=== PATIENT | male | born 1995 | race Two or more races ===

== ENCOUNTER 2019-04-11 09:59 | Emergency (ER) | payer SELFPAY ==
[~2019-04-11] VITALS: Ht 167.6 cm; Wt 68.0 kg
[2019-04-11 10:41] LABS: Basophils # (auto) 0 uL; Basophils % (auto) 0.4 % (0.0-2.0); Eosinophils # (auto) 0.2 uL; Eosinophils % (auto) 3.7 % (0.0-7.0); Hematocrit 45.6 % (41.0-53.0); Hemoglobin 15.2 g/dL (13.5-17.5); Lymphocytes # (auto) 2.3 uL; Lymphocytes % (auto) 34.3 % (10.0-50.0); Mean Corpuscular Hemoglobin 29.9 pg (28.0-32.0); Mean Corpuscular Hgb Conc. 33.4 g/dL (32.0-36.0); Mean Corpuscular Volume 89.5 fL (80.0-100.0); Monocytes # (auto) 0.6 uL; Monocytes % (auto) 9.2 % (0.0-12.0); Neutrophils # (auto) 3.5 uL; Neutrophils % (auto) 52.4 % (37.0-80.0); Platelet Count (auto) 195 10^3/uL (140-450); Red Cell Distribution Width 13.7 % (11.8-14.3); White Blood Cell 6.7 10^3/uL (4.4-10.8)
[2019-04-11 10:51] VITALS: BP 124/83
[2019-04-11 10:55] LABS: Albumin 4.3 g/dL (3.4-5.0); BUN/Creatinine Ratio 15.7; Calcium 9.1 mg/dL (8.5-10.1); Potassium 3.9 mmol/L (3.5-5.1)
[2019-04-11 10:57] LABS: Bilirubin, Total 0.7 mg/dL (0.2-1.0); Total Protein 7.5 g/dL (6.4-8.2)
[2019-04-11] MEDS ORDERED: KETOROLAC TROMETH 15 mg/ml 1ML VL IV ONE (11:15)
[2019-04-11] MEDS ORDERED: KETOROLAC TROMETH 60MG/2ML VIAL IM ONE (11:30)
[2019-04-11 11:55] LABS: Urine Bacteria NONE SEEN /hpf (None Seen); Urine Blood Negative /uL (Negative); Urine Mucus FEW (None Seen); Urine Specific Gravity 1.025 (1.001-1.035); Urine WBC 1 /hpf (0 - 3)
== END 2019-04-11 12:40 | disposition home or self-care (01) ==
LOC: ER 09:59
DX: R10.31 Right lower quadrant pain (principal); R11.2 Nausea with vomiting, unspecified; R19.7 Diarrhea, unspecified; F12.90 Cannabis use, unspecified, uncomplicated
CPT/HCPCS: 36415; 74176; 80053; 81001; 85025; 96372; 99284; J1885

== ENCOUNTER 2024-09-05 01:34 | Emergency (ER) | payer MEDICAID, OTHER ==
[~2024-09-05] VITALS: Ht 170.2 cm; Wt 63.6 kg
[2024-09-05 01:44] VITALS: BP 141/83; PULSE 110; RESP 18; O2SAT 99
--- NOTE | 2024-09-05 02:33 | ED.PDOC ---
General HPI Comments 29 year old male presents to ER with complaints of testicular pain x 6 days. Patient with PMH of chronic lumbar back pain reports he has been experiencing intermittent bilateral testicular pain x 6 days that got worse x 1 day prompting him to come to ER for further evaluation. He rates his current pain a 7/10 to bilateral testicles with radiation towards right upper quadrant of abdomen. Denies use of medications for current symptoms. Notes he did have 2 episodes of n/v yesterday evening and states that one episode of vomiting appeared to have "streaks" of blood in it, denying any current n/v. Patient presents to ER ambulatory on arrival, with steady gait, in no distress. Denies fever, body aches, chills, fatigue, night sweats, skin changes, trauma/injury/heavy lifting, exposure to STD, flank pain, changes in urination/bm or any further symptoms/complaints Chief Complaint: Abdominal Pain Time Seen by MD: 01:45 Primary Care Provider: ZAID March notes: Nurses Notes, Medications, Allergies Allergies: Coded Allergies: NO KNOWN ALLERGIES (Unverified , 09/05/24) Information Source: Patient Mode of Arrival: Ambulatory Past Medical History Past Medical History (Other): Chronic back pain Surgical History: Denies all surgeries Family History Family History: Unknown Social History Smoker: Non-Smoker Alcohol: Occasionally Drugs: Marijuana Lives In: Home Constitutional: denies: chills, diaphoresis, fatigue, fever, malaise, sweats, weakness, others EENTM: denies: blurred vision, double vision, ear bleeding, ear discharge, ear drainage, ear pain, ear ringing, eye pain, eye redness, hearing loss, mouth pain, mouth swelling, nasal discharge, nose bleeding, nose congestion, nose pain, photophobia, tearing, throat pain, throat swelling, voice changes, others Respiratory: denies: cough, hemoptysis, orthopnea, SOB at rest, shortness of breath, SOB with excertion, stridor, wheezing, others Cardiovascular: denies: chest pain, dizzy spells, diaphoresis, Dyspnea on exertion, edema, irregular heart beat, left arm pain, lightheadedness, palpitati ons, PND, syncope, others Gastrointestinal: reports: others (As stated in HPI) Genitourinary: reports: others (As stated in HPI) Neurological: denies: dizziness, fainting, headache, left sided numbness, left sided weakness, numbness, paresthesia, pre-existing deficit, right sided numbness, right sided weakness, seizure, speech problems, tingling, tremors, weakness, others Musculoskeletal: denies: back pain, gout, joint pain, joint swelling, muscle pain, muscle stiffness, neck pain, others Integumetry: denies: bruises, change in color, change in hair/nails, dryness, laceration, lesions, lumps, rash, wounds, others Allergic/Immunocompromised: denies: Difficulty Healing, Frequent Infections, Hives, Itching, others Hematologic/Lymphatic: denies: anemia, blood clots, easy bleeding, easy bruising, swollen glands, others Endocrine: denies: excessive hunger, excessive sweating, excessive thirst, excessive urination, flushing, intolerance to cold, intolerance to heat, unexplained weight gain, unexplained weight loss, others Psychiatric: denies: anxiety, bipolar disorder, depression, hopeless, panic disorder, schizophrenia, sleepless, suicidal, others Physical Exam General Appearance: No Apparent Distress HEENT: PERRL/EOMI Neck: Full Range of Motion, Non-Tender, Normal Respiratory: Chest Non-Tender, Lungs Clear, No Accessory Muscle Use, No Respiratory Distress, Normal Breath Sounds Cardiovascular: No Murmur, No Gallop, Regular Rate/Rhythm Breast Exam: Deferred Gastrointestinal: Epigastric (Slight TTP to epigastric region of abdomen noted. No rebound/guarding noted. No hernias/masses noted. No skin changes apprecaited. No other TTP to abdomen appreciated), No Organomegaly, No Pulsatile Mass, Normal Bowel Sounds, Soft Genitalia: Other (Slight TTP to bilateral testicles noted. No high riding testicles noted. Positive cremasteric reflex bilaterally. Negative prehns sign bilaterally. No skin changes appreciated) Pelvic: Deferred Rectal: Deferred Extremities: Normal capillary refill, Normal range of motion Neurologic: Alert, coverage analyst II-XII nml as Tested, No Motor Deficits, Normal Affect, Normal Mood, No Sensory Deficits Cerebellar Function: Normal Reflexes: Normal Skin: Dry, Normal Color, Warm Lymphatic: No Adenopathy Was a procedure done? Was a procedure done?: No Sedation Sedation?: No Differential Diagnosis Kidney stone (Female): N/A Kidney stone (Male): Aortic dissection Penile/Scrotal: Epidiymitis, UTI, Testicular Torsion, Urinary Retention X-Ray, Labs, Meds, VS Vital Signs Date Time Temp Pulse Resp B/P (MAP) Pulse Ox O2 Delivery O2 Flow Rate FiO2 09/05/24 02:45 Room Air* 0 21 09/05/24 01:44 98.5 110 18 141/83 (102) 99 Lab Test 09/05/24 03:04 09/05/24 01:42 Range/Units White Blood Count 10.3 4.4-10.8 10^3/uL Red Blood Count 5.10 4.5-5.90 10^6/uL Hemoglobin 15.1 13.5-17.5 g/dL Hematocrit 44.9 41.0-53.0 % Mean Corpuscular Volume 88.1 80.0-100.0 fL Mean Corpuscular Hemoglobin 29.7 28.0-32.0 pg Mean Corpuscular Hemoglobin Concent 33.7 32.0-36.0 g/dL Red Cell Distribution Width 14.2 11.8-14.3 % Platelet Count 299 140-450 10^3/uL Mean Platelet Volume 7.9 6.9-10.8 fL Neutrophils (%) (Auto) 62.1 37.0-80.0 % Lymphocytes (%) (Auto) 27.0 10.0-50.0 % Monocytes (%) (Auto) 7.8 0.0-12.0 % Eosinophils (%) (Auto) 2.6 0.0-7.0 % Basophils (%) (Auto) 0.5 0.0-2.0 % Neutrophils # (Auto) 6.4 1.6-8.6 10 ^3/uL Lymphocytes # (Auto) 2.8 0.4-5.4 10 ^3/uL Monocytes # (Auto) 0.8 0-1.3 10 ^3/uL Eosinophils # (Auto) 0.3 0-0.8 10 ^3/uL Basophils # (Auto) 0.1 0-0.2 10 ^3/uL Nucleated Red Blood Cells 0.1 % Prothrombin Time 10.9 9.3-11.8 sec Prothrombin Time INR 1.03 0.9-1.15 Activated Partial Thromboplast Time 28.9 24.5-34.5 SEC Sodium Level 142 136-145 mmol/L Potassium Level 3.8 3.5-5.1 mmol/L Chloride Level 107 98-107 mmol/L Carbon Dioxide Level 28 20-31 mmol/L Anion Gap 7 5-15 Blood Urea Nitrogen 7 L 9-23 mg/dL Creatinine 0.78 0.700-1.30 mg/dL Glomerular Filtration Rate Calc 125 >90 mL/min BUN/Creatinine Ratio 9.0 L 10.0-20.0 Serum Glucose 106 74-106 mg/dL Calcium Level 10.1 8.7-10.4 mg/dL Total Bilirubin 0.4 0.2-1.0 mg/dL Aspartate Amino Transferase (AST) 17 13-40 U/L Alanine Aminotransferase (ALT) 24 7-40 U/L Alkaline Phosphatase 70 46-116 U/L Total Protein 7.5 5.7-8.2 g/dL Albumin 4.8 3.2-4.8 g/dL Urine Color Light-orange Yellow Urine Clarity Turbid H Clear Urine pH 6.5 5.0-9.0 Urine Specific Given 1.022 1.001-1.035 Urine Protein Negative Negative Urine Ketones Negative Negative Urine Blood Negative Negative /uL Urine Nitrite Negative Negative Urine Bilirubin Negative Negative Urine Urobilinogen Normal Negative mg/dL Urine Leukocyte Esterase Negative Negative /uL Urine RBC 2 0 - 3 /hpf Urine WBC 4 0 - 3 /hpf Urine Squamous Epithelial Cells None seen <5 /hpf Urine Amorphous Crystals Few None Seen /hpf Urine Bacteria Few H None Seen /hpf Urine Mucus Few None Seen Urine Glucose Normal Normal mg/dL Urine Opiates Screen Neg NEGATIVE Urine Fentanyl Screen Neg NEGATIVE Urine Barbiturates Screen Neg NEGATIVE Urine Phencyclidine Screen Neg NEGATIVE Urine Amphetamines Screen Neg NEGATIVE Urine Benzodiazepines Screen Neg NEGATIVE Urine Cocaine Screen Pos NEGATIVE Urine Cannabinoids Screen Pos NEGATIVE PATIENT: COLTON PINTO AACCT: [id number]: [id number] : 1995 LOC: ER ROOM / BED: / AGE / SEX: 29 / M ADM STATUS: REG ER SERVICE [id number] ORDERING PHYSICIAN: GINI HARDY PROCEDURE(s): ABPL - CT AB PEL WO CON-NO ORAL OR IV REASON: abdominal pain ORDER NUMBER(s): [id number], ACCESSION NUMBER(s): [id number] Examination: ABPL CLINICAL INDICATION: Abdominal pain. COMPARISON: None. CONTRAST USED: None. TECHNIQUE: A plain CT study of the abdomen and pelvis is performed. The examination was performed with [address] scan is done according to ALARA (As Low as Reasonably Achievable). Multiplanar reconstructions were obtained. FINDINGS: The lack of intravenous contrast limits evaluation of solid organ and other structures, differentiation/separation and intraluminal evaluation of vessels and ureter from surrounding structures, and evaluation of organ or abnormal enhancement. CT ABDOMEN: Visualized lower thorax: The evaluation of lung bases demonstrates no focal infiltrates or pleural effusion. Unenhanced liver: The liver is normal in size. There is no intrahepatic biliary radicle dilatation. Gallbladder: The gallbladder is normal and reveals no intrinsic abnormality. The common bile duct is not dilated. Unenhanced pancreas: The pancreas is normal in size and shape. No focal lesion is seen within. The peripancreatic fat planes are normal. Unenhanced spleen: The spleen is normal in size and does not show any focal abnormality. Retroperitoneum: Both adrenal glands are normal in size and morphology in this unenhanced CT scan. There is no significant retroperitoneal lymphadenopathy. The kidneys are normal in size with no hydronephrosis or renal calculi. Vessels: The aorta, IVC and the mesenteric vessels cannot be commented in this unenhanced CT scan. Stomach and bowel: Long segment circumferential soft tissue density wall thickening involving the small bowel loops in left lumbar region, due to underdistention/enteritis infective/inflammatory etiology. The rest of the bowel loops are unremarkable. There is no ascites. Skeletal system: Sacralization of L5 vertebra, transitional vertebra, however, MRI localizer sequence of whole spine for vertebral count is suggested. Otherwise, the rest of the visualized thoracolumbar vertebrae and the pelvic bones are unremarkable. CT PELVIS: Appendix: The appendix is unremarkable in appearance. Colon: The ascending, transverse, descending, sigmoid colon and rectum are unremarkable. Urinary bladder: The urinary bladder is unremarkable. Pelvic organs: The prostate is normal in size and unremarkable in appearance. No significant pelvic lymphadenopathy is identified. No abnormal fluid collection is seen. IMPRESSION: 1. Long segment circumferential soft tissue density wall thickening involving the small bowel loops in left lumbar region, due to underdistention/enteritis infective/inflammatory etiology. 2. No evidence of radiopaque calculus in both kidneys, ureters or urinary bladder. 3. No hydronephrosis or hydroureter on either side in current study. 4. No abdominal mass or adenopathy. 5. No ascites. 6. No free air. 7. Chronic and/or ancillary findings as described above. Electronically Signed 09/05/2024 03:11 Edmar Persaud ATED BY: FRANCO PADRON MD DICTATED DATE/TIME: 09/05/24310 SIGNED BY: FRANCO PADRON MD SIGNED DATE/TIME: 09/05/24310 CC: PATIENT: COLTON PINTO AACCT: [id number] UNIT: [id number] : 1995 LOC: ER ROOM / BED: / AGE / SEX: 29 / M ADM STATUS: REG ER SERVICE 9 ORDERING PHYSICIAN: GINI HARDY PROCEDURE(s): TESUS - TESTICULAR ULTRASOUND REASON: bilateral testicular pain ORDER NUMBER(s): [id number], ACCESSION NUMBER(s): [id number] Examination: TESUS CLINICAL INDICATION: Bilateral testicular pain. COMPARISON: None. TECHNIQUE: Duplex and color flow imaging as well as real time zhong-scale imaging of the scrotum and testicles was performed. FINDINGS: Right Scrotum: Testis: It measures 4.5 x 2.1 x 3.3 cm. Epididymis: It measures 1.2 cm. Hydrocele: Not seen. Left Scrotum: Testis: It measures 4.5 x 2.4 x 2.2 cm. Epididymis: It measures 1 cm. Hydrocele: Not seen. Both testes show normal and homogeneous echotexture. No focal area of abnormality is seen. No calcification is noted. Both epididymides are normal. No evidence of varicocele is noted. The spermatic cord on either side appears normal. IMPRESSION: 1. No significant abnormality is detected in this study. 2. No testicular torsion. 3. No hydrocele. Electronically Signed 09/05/2024 03:18 Edmar Persaud ATED BY: FRANCO PADRON MD DICTATED DATE/TIME: 09/05/24317 SIGNED BY: FRANCO PADRON MD SIGNED DATE/TIME: 09/05/24 0318 CC: CBC reviewed-normal BMP reviewed without any significant abnormalities PT/PTT reviewed-normal Urinalysis reviewed without any significant abnormalities UDS reviewed-positive cannabinoids, positive cocaine CT abdomen/pelvis w/o contrast reviewed Patient refused pain medication in ER Cannabis/cocaine cessation discussed and advised Testicular ultrasound reviewed Advised to f/u with PCP in 1-2 days Patient stated he could no longer stay in ER and "had to leave to work for [employer]" Patient was encouraged to stay until all pending lab and imaging results were reviewed and discussed with all risks of eloping from ER discussed. Patient verbalized understanding, refused to stay and was seen walking out of fast-track Patient eloped from emergency department Time of 1ST Reevaluation: 02:42 Reevaluation 1ST: N/A Patient Education/Counseling: Need For Follow Up, Other (Patient eloped) Family Education/Counseling: No Family Present Departure 1 Departure Time of Disposition: 03:38 Impression: Primary Impression: Testicular pain Qualified Codes: N50.811 - Right testicular pain; N50.812 - Left testicular pain Additional Impressions: Gastroenteritis Cannabis abuse Cocaine abuse Disposition: 07 LEFT AWOL/ELOPED Condition: Fair Critical Care Note Critical Care Time?: No Stability Stability form required: No Heart Score Heart Score: Heart Score Response (Comments) Value History N/A 0 EKG N/A 0 Age N/A 0 Risk Factors N/A 0 Troponin N/A 0 Total 0 GINI HARDY Sep 05, 2024 02:33
--- NOTE | 2024-09-05 03:20 | DVH ---
Examination: ABPL CLINICAL INDICATION: Abdominal pain. COMPARISON: None. CONTRAST USED: None. TECHNIQUE: A plain CT study of the abdomen and pelvis is performed. The examination was performed w ith [address] scan is done according to ALARA (As Low as Reasonably Achievable). Multipl tyrone reconstructions were obtained. FINDINGS: The lack of intravenous contrast limits evaluation of solid organ and other structures, differentiati on/separation and intraluminal evaluation of vessels and ureter from surrounding structures, and eval uation of organ or abnormal enhancement. CT ABDOMEN: Visualized lower thorax: The evaluation of lung bases demonstrates no focal infiltrates or pleural e ffusion. Unenhanced liver: The liver is normal in size. There is no intrahepatic biliary radicle dilatation. Gallbladder: The gallbladder is normal and reveals no intrinsic abnormality. The common bile duct is not dilated. Unenhanced pancreas: The pancreas is normal in size and shape. No focal lesion is seen within. The pe ripancreatic fat planes are normal. Unenhanced spleen: The spleen is normal in size and does not show any focal abnormality. Retroperitoneum: Both adrenal glands are normal in size and morphology in this unenhanced CT scan. Th ere is no significant retroperitoneal lymphadenopathy. The kidneys are normal in size with no hydrone phrosis or renal calculi. Vessels: The aorta, IVC and the mesenteric vessels cannot be commented in this unenhanced CT scan. Stomach and bowel: Long segment circumferential soft tissue density wall thickening involving the sma ll bowel loops in left lumbar region, due to underdistention/enteritis infective/inflammatory bibi ology. The rest of the bowel loops are unremarkable. There is no ascites. Skeletal system: Sacralization of L5 vertebra, transitional vertebra, however, MRI localizer sequence of whole spine for vertebral count is suggested. Otherwise, the rest of the visualized thoracolumbar vertebrae and the pelvic bones are unremarkable. CT PELVIS: Appendix: The appendix is unremarkable in appearance. Colon: The ascending, transverse, descending, sigmoid colon and rectum are unremarkable. Urinary bladder: The urinary bladder is unremarkable. Pelvic organs: The prostate is normal in size and unremarkable in appearance. No significant pelvic lymphadenopathy is identified. No abnormal fluid collection is seen. IMPRESSION: 1. Long segment circumferential soft tissue density wall thickening involving the small bowel loops in left lumbar region, due to underdistention/enteritis infective/inflammatory etiology. 2. No evidence of radiopaque calculus in both kidneys, ureters or urinary bladder. 3. No hydronephrosis or hydroureter on either side in current study. 4. No abdominal mass or adenopathy. 5. No ascites. 6. No free air. 7. Chronic and/or ancillary findings as described above. Electronically Signed 09/05/2024 03:11 Edmar Persaud
[2024-09-05 03:26] LABS: Basophils # (auto) 0.1 10 ^3/uL (0-0.2); Basophils % (auto) 0.5 % (0.0-2.0); Eosinophils # (auto) 0.3 10 ^3/uL (0-0.8); Eosinophils % (auto) 2.6 % (0.0-7.0); Hematocrit 44.9 % (41.0-53.0); Hemoglobin 15.1 g/dL (13.5-17.5); Lymphocytes # (auto) 2.8 10 ^3/uL (0.4-5.4); Mean Corpuscular Hemoglobin 29.7 pg (28.0-32.0); Mean Corpuscular Hgb Conc. 33.7 g/dL (32.0-36.0); Mean Corpuscular Volume 88.1 fL (80.0-100.0); Monocytes # (auto) 0.8 10 ^3/uL (0-1.3); Monocytes % (auto) 7.8 % (0.0-12.0); Neutrophils # (auto) 6.4 10 ^3/uL (1.6-8.6); Neutrophils % (auto) 62.1 % (37.0-80.0); Nucleated Red Blood Cells % 0.1 %; Platelet Count (auto) 299 10^3/uL (140-450); Red Cell Distribution Width 14.2 % (11.8-14.3); White Blood Cell 10.3 10^3/uL (4.4-10.8)
--- NOTE | 2024-09-05 03:26 | DVH ---
Examination: TESUS CLINICAL INDICATION: Bilateral testicular pain. COMPARISON: None. TECHNIQUE: Duplex and color flow imaging as well as real time zhong-scale imaging of the scrotum and testicles was performed. FINDINGS: Right Scrotum: Testis: It measures 4.5 x 2.1 x 3.3 cm. Epididymis: It measures 1.2 cm. Hydrocele: Not seen. Left Scrotum: Testis: It measures 4.5 x 2.4 x 2.2 cm. Epididymis: It measures 1 cm. Hydrocele: Not seen. Both testes show normal and homogeneous echotexture. No focal area of abnormality is seen. No calcification is noted. Both epididymides are normal. No evidence of varicocele is noted. The spermatic cord on either side appears normal. IMPRESSION: 1. No significant abnormality is detected in this study. 2. No testicular torsion. 3. No hydrocele. Electronically Signed 09/05/2024 03:18 Edmar Persaud
[2024-09-05 03:30] LABS: Urine Amorphous Crystal FEW /hpf (None Seen); Urine Bacteria FEW /hpf (None Seen); Urine Blood Negative /uL (Negative); Urine Clarity Turbid (Clear); Urine Color Light-Orange (Yellow); Urine Mucus FEW (None Seen); Urine Protein, UAD Negative (Negative); Urine Specific Gravity 1.022 (1.001-1.035); Urine Urobilinogen Normal (Negative); Urine WBC 4 /hpf (0 - 3); Urine pH 6.5 (5.0-9.0)
[2024-09-05 03:38] LABS: Amphetamine Screen, Urine Neg (NEGATIVE); Barbiturate Scree,Urine Neg (NEGATIVE); Benzodiazephine Screen, Urine Neg (NEGATIVE); Cocaine Screen, Urine Pos (NEGATIVE); Opiate Scree,Urine Neg (NEGATIVE)
[2024-09-05 03:38] LABS: INR 1.03 (0.9-1.15); Partial Thromboplastin Time 28.9 SEC (24.5-34.5); Prothrombin Time 10.9 sec (9.3-11.8)
[2024-09-05 03:39] LABS: Cannabinoid Screen, Urine Pos (NEGATIVE); Phencyclidine Screen, Urine Neg (NEGATIVE)
[2024-09-05 03:43] LABS: Alanine Aminotransferase 24 U/L (7-40); Albumin 4.8 g/dL (3.2-4.8); Alkaline Phosphatase 70 U/L (46-116); Anion Gap 7 (5-15); Aspartate Aminotransferase 17 U/L (13-40); Blood Urea Nitrogen 7 mg/dL (9-23); Calcium 10.1 mg/dL (8.7-10.4); Carbon Dioxide 28 mmol/L (20-31); Chloride 107 mmol/L (98-107); Glucose 106 mg/dL (74-106); Potassium 3.8 mmol/L (3.5-5.1); Sodium 142 mmol/L (136-145)
[2024-09-05 03:44] LABS: Bilirubin, Total 0.4 mg/dL (0.2-1.0); Total Protein 7.5 g/dL (5.7-8.2)
== END 2024-09-05 03:40 | disposition left against medical advice (07) ==
LOC: ER 01:34
DX: K52.9 Noninfective gastroenteritis and colitis, unspecified (principal); N50.811 Right testicular pain; N50.812 Left testicular pain; F12.10 Cannabis abuse, uncomplicated; F14.10 Cocaine abuse, uncomplicated; G89.29 Other chronic pain; Z79.899 Other long term (current) drug therapy; Z79.01 Long term (current) use of anticoagulants
CPT/HCPCS: 36415; 74176; 76870; 80053; 80307; 81001; 85025; 85610; 85730; 99284; J7030

== ENCOUNTER 2024-11-02 04:16 | Emergency (ER) | payer MEDICAID ==
[~2024-11-02] VITALS: Ht 170.2 cm; Wt 66.7 kg
[2024-11-02 05:03] VITALS: BP 129/80; PULSE 107; RESP 18; TEMP 97.6; O2SAT 97
[2024-11-02] MEDS ORDERED: FAMO20TA10 PO (05:21)
[2024-11-02] MEDS ORDERED: METH4PAK PO (05:21)
[2024-11-02] MEDS ORDERED: DIP005TP EX (05:21)
--- NOTE | 2024-11-02 05:22 | ED.PDOC ---
HPI Allergic reaction HPI Comments THIS IS A 29-YEAR-OLD MALE PRESENTS TO THE ED CHIEF COMPLAINT RASH. PATIENT STATES LAST NIGHT HE GOT OUT OF THE SHOWER ABOUT 15 MINUTES AFTER GETTING OUT OF THE SHOWER HE IS EXPERIENCING A RASH TO THE BOTTOM OF HIS BILATERAL FEET BILATERAL HANDS. HE STATES THE RASH WAS "TINGLY" AND BURNING WITH MILD ITCHINESS. HE REPORTS UNKNOWN ALLERGEN. HE DENIES DIFFICULTY BREATHING, SHORTNESS BREATH, CHEST PAIN, FEVER OR CHILLS. Chief Complaint: Rash Time Seen by MD: 04:36 Primary Care Provider: ZAID Reviewed Notes: Nurses Notes, Medications, Allergies Allergies: Coded Allergies: NO KNOWN ALLERGIES (Unverified , 09/05/24) Home Meds Active Scripts Betamethasone Dipropionate (Betamethasone Dipropionat) 0.05 % Cre, 0.05 % EX BID for 7 Days, #15 GRAMS APPLY A THIN LAYER TO THE AFFECTED AREA TWICE DAILY X7 DAYS Prov:ELAINE SHULTZP 11/02/24 Famotidine (PEPCID TABLET) 20 Mg Tb, 1 TAB PO BID for 6 Days, #12 TAB Prov:ELAINE SHULTZ 11/02/24 Methylprednisolone (Medrol Dosepak) 4 Mg Keven, 4 MG PO UD for 6 Days, #21 TAB UAD Prov:ELAINE SHULTZ 11/02/24 Information Source: Patient Mode of Arrival: Ambulatory Past Medical History Surgical History: Denies all surgeries Family History Family History: Unknown Social History Smoker: Non-Smoker Alcohol: Occasionally Drugs: Marijuana Lives In: Home Constitutional: denies: chills, diaphoresis, fatigue, fever, malaise, sweats, weakness, others EENTM: denies: blurred vision, double vision, ear bleeding, ear discharge, ear drainage, ear pain, ear ringing, eye pain, eye redness, hearing loss, mouth pain, mouth swelling, nasal discharge, nose bleeding, nose congestion, nose pain, photophobia, tearing, throat pain, throat swelling, voice changes, others Respiratory: denies: cough, hemoptysis, orthopnea, SOB at rest, shortness of breath, SOB with excertion, stridor, wheezing, others Cardiovascular: denies: chest pain, dizzy spells, diaphoresis, Dyspnea on exertion, edema, irregular heart beat, left arm pain, lightheadedness, palpitations, PND, syncope, others Gastrointestinal: denies: abdomen distended, abdominal pain, blood streaked bowels, constipated, diarrhea, dysphagia, difficulty swallowing, hematemesis, melena, nausea, poor appetite, poor fluid intake, rectal bleeding, rectal pain, vomiting, others Genitourinary: denies: burning, dysuria, flank pain, frequency, hematuria, in continence, penile discharge, penile sore, pain, testicle pain, testicle swelling, urgency, others Musculoskeletal: denies: back pain, gout, joint pain, joint swelling, muscle pain, muscle stiffness, neck pain, others Integumetry: reports: rash (BILATERAL HANDS FOREARMS AND FEET); denies: bruises, change in color, change in hair/nails, dryness, laceration, lesions, lumps, wounds, others Allergic/Immunocompromised: denies: Difficulty Healing, Frequent Infections, Hives, Itching, others Hematologic/Lymphatic: denies: anemia, blood clots, easy bleeding, easy bruising, swollen glands, others Endocrine: denies: excessive hunger, excessive sweating, excessive thirst, excessive urination, flushing, intolerance to cold, intolerance to heat, unexplained weight gain, unexplained weight loss, others Psychiatric: denies: anxiety, bipolar disorder, depression, hopeless, panic disorder, schizophrenia, sleepless, suicidal, others Physical Exam General Appearance: No Apparent Distress, Normal HEENT: Normal ENT Inspection, Pharynx Normal, TMs Normal Neck: Full Range of Motion, Non-Tender Respiratory: Lungs Clear, No Respiratory Distress, Normal Breath Sounds Cardiovascular: No Edema, No JVD, No Murmur, No Gallop, Normal Peripheral Pulses, Regular Rate/Rhythm Breast Exam: Deferred Gastrointestinal: No Organomegaly, Non Tender, No Pulsatile Mass, Normal Bowel Sounds, Soft Genitalia: Deferred Pelvic: Deferred Rectal: Deferred Extremities: Normal capillary refill, Normal inspection, Normal range of motion, Non-tender, No pedal edema Musculoskeletal : Apperance: Normal Neurologic: Alert, poly area supervisor II-XII nml as Tested, No Motor Deficits, Normal Affect, Normal Mood, No Sensory Deficits Cerebellar Function: Normal Reflexes: Normal Skin: Dry, Normal Color, Rash (ERYTHEMIC MACULAR RASH PRESENTED ON BILATERAL HANDS WRISTS FOREARMS AND BILATERAL FEET PLANTAR ASPECT), Warm Lymphatic: No Adenopathy Was a procedure done? Was a procedure done?: No Differential diagnosis (all) Differential Diagnosis: Anaphylaxis, Angioedema, Bronchospasm, Urticaria X-Ray, Labs, Meds, VS Vital Signs Date Time Temp Pulse Resp B/P (MAP) Pulse Ox O2 Delivery O2 Flow Rate FiO2 11/02/24 05:03 107 18 97 Room Air 11/02/24 05:03 97.6 107 18 129/80 (96) 97 97.6 11/02/24 04:32 97.6 107 18 129/80 (96) 97 Lab Test 11/02/24 04:33 Range/Units POC Glucose 79 70-106 mg/dl X-Ray, Labs, Meds, VS Comment PATIENT GIVEN DECADRON 10 MG IM AND PEPCID 40 MG IM REPORTS IMPROVEMENT IN SYMPTOMS REQUESTING DISCHARGE AT THIS TIME SCRIPT MEDROL DOSEPAK AND PEPCID X6 DAYS. ADVISED TO REST INCREASE P.O. FLUIDS WITH ELECTROLYTES. ADVISED TO WASH THE TUB BLOODY WAS THEN POSSIBLE EXPOSURE. ER RETURN PRECAUTIONS GIVEN PATIENT INDICATED UNDERSTANDING AGREES WITH DISCHARGE PLAN OF CARE Time of 1ST Reevaluation: 05:20 Reevaluation 1ST: Improved Patient Education/Counseling: Diagnosis, Treatment, Prognosis, Need For Follow Up Family Education/Counseling: No Family Present Departure 1 Departure Time of Disposition: 05:20 Impression: Primary Impression: Allergic reaction Qualified Codes: T78.40XA - Allergy, unspecified, initial encounter Disposition: HOME / SELF CARE / HOMELESS Condition: Stable e-Prescriptions Betamethasone Dipropionate (Betamethasone Dipropionat) 0.05 % Cre 0.05 % EX BID for 7 Days, #15 GRAMS APPLY A THIN LAYER TO THE AFFECTED AREA TWICE DAILY X7 DAYS Prov: ELAINE SHULTZ 11/02/24 Famotidine (PEPCID TABLET) 20 Mg Tb 1 TAB PO BID for 6 Days, #12 TAB Prov: ELAINE SHULTZ 11/02/24 Methylprednisolone (Medrol Dosepak) 4 Mg Keven 4 MG PO UD for 6 Days, #21 TAB UAD Prov: ELAINE SHULTZ 11/02/24 Discharged With: Self Critical Care Note Critical Care Time?: No Stability Stability form required: No ELAINE SHULTZ Nov 02, 2024 05:22
[2024-11-02] MEDS: FAMOTIDINE 20 MG TAB PO ONE (05:23)
[2024-11-02] MEDS: DexAMETHasone SOD PHOS 10MG/1ML VIAL INJ IM ONE (05:23)
== END 2024-11-02 05:31 | disposition home or self-care (01) ==
LOC: ER 04:16
DX: T78.40XA Allergy, unspecified, initial encounter (principal); Z79.899 Other long term (current) drug therapy; X58.XXXA Exposure to other specified factors, initial encounter
CPT/HCPCS: 82962; 96372; 99283; J1100; J7030

== ENCOUNTER 2024-11-04 15:56 | Emergency (ER) | payer MEDICAID ==
[~2024-11-04 15:56] MED LIST: DIP005TP EX; FAMO20TA10 PO; METH4PAK PO
== END 2024-11-04 16:30 | disposition left against medical advice (07) ==
LOC: ER 15:56
DX: R21 Rash and other nonspecific skin eruption (principal); Z53.21 Procedure and treatment not carried out due to patient leaving prior to being seen by health care provider

== ENCOUNTER 2024-11-04 21:28 | Emergency (ER) | payer MEDICAID ==
[~2024-11-04] VITALS: Ht 170.2 cm; Wt 64.6 kg
[2024-11-04 23:45] VITALS: BP 124/72; PULSE 100; RESP 17; TEMP 97.9; O2SAT 97
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
== END 2024-11-04 23:52 | disposition home or self-care (01) ==
LOC: ER 21:28
DX: L25.9 Unspecified contact dermatitis, unspecified cause (principal); F17.210 Nicotine dependence, cigarettes, uncomplicated; G89.29 Other chronic pain; M54.9 Dorsalgia, unspecified; F12.10 Cannabis abuse, uncomplicated; F14.10 Cocaine abuse, uncomplicated